=== PATIENT | male | born 1960 | race African-American/Black ===

== ENCOUNTER → 2016-08-29 | Outpatient (CLI) | payer MEDICAID ==
[~2016-08-29] MED LIST: AMOXICILLIN 50500 MG PO; ASPIRIN 81M81 MG/TA2 PO; CALCIUM 600-D 61 TAB PO; CASODEX 50MG TA50 MG PO; COREG 3.123.125 MG/T PO; FLEXERIL 1010 MG/TAB PO; FLOMAX 0.40.4 MG/CAP PO; LOPRESSOR 225 MG/TAB PO; LORTAB 5/500 501 TAB PO; MULTIPLE VITAMI1 CAP PO; NO HOME MEDICATIONS; NORCO 325 MG-51 TAB PO; OXYCODONE10 MG PO; OXYCONTIN40 MG PO; PERCOCET 325 MG1 TA2 PO; PERCOCET 325 MG1 TA3 PO; PERCOCET 325 MG1 TA5 PO; PERCOCET 325 MG1 TAB PO; PERCOCET 5/321 UDTAB PO; PERCOCET 650 MG1 TAB PO; PHENERGAN W/CO120 ML PO; PRINIVIL10 MG PO; PRINIVIL2.5 MG PO; PROTONIX 40MG T40 MG PO; ROXICODONE30 MG PO; SUDAFED 12HR120 MG PO; TEGRETOL 2200 MG/TAB PO; ULTRAM50 MG PO; XANAX XR2 MG PO; XANAX2 MG PO; ZOHYDRO ER20 MG PO
[2016-10-08 14:52] LABS: LF NECROINFLAMMAT ACT GRADE A3 (()); LF NECROINFLAMMAT ACT SCORE 0.78 (()); LF REFERENCE ID 1446060 (()); LIVER FIBROSIS ALPHA 2 MACRO 478 (()); LIVER FIBROSIS APOLIPOPROTEIN 184 (())
== END ==
LOC: COL.LAB 14:04
DX: B18.2 Chronic viral hepatitis C (principal)

== ENCOUNTER 2016-10-13 05:40 | Emergency (ER) | payer MEDICAID ==
[~2016-10-13] VITALS: Ht 185.4 cm; Wt 109.1 kg
[~2016-10-13 05:40] MED LIST changes: -PERCOCET 325 MG1 TA3 PO; -PROTONIX 40MG T40 MG PO
[2016-10-13 05:45] VITALS: TEMP 99.7
[2016-10-13 06:26] LABS: BASO # 0.1 (0.0-0.2); BASO % 0.6 % (0.0-2.0); EOS # 0.6 (0.0-0.7); EOS % 6.3 % (0-4.0); GRAN # 4.5 (1.4-6.5); GRAN % 45.8 % (42.2-75.2); HEMOGLOBIN 14.9 g/dl (13.5-18.0); LYMPH # 3.1 (1.2-3.4); LYMPH % 31.8 % (20.0-51.0); MEAN CELL VOLUME 88 fl (80.0-100.0); MEAN CORPUSCULAR HEMOGLOBIN 30 pg (27.0-31.0); MEAN CORPUSCULAR HGB CONC 34 g/dl (33.0-37.0); MEAN PLATELET VOLUME 11.7 fl (7.4-10.4); MONO # 1.5 (0.1-0.6); MONO % 15.3 % (1.7-9.3); PLATELET COUNT 271 K/mm3 (130-400); RED BLOOD COUNT 4.98 M/mm3 (4.20-5.60); REDCELL DISTRIBUTION WIDTH-CV 13.6 % (11.5-14.5); WHITE BLOOD COUNT 9.8 K/mm3 (4.8-10.8)
[2016-10-13 06:36] LABS: ADJUSTED CALCIUM 9.9 mg/dL (8.4-10.2); ALANINE AMINOTRANSFERASE 152 U/L (21-72); ALBUMIN 3.5 gm/dL (3.5-5.0); ALKALINE PHOSPHATASE 200 U/L (50-136); ANION GAP 10 mmol/L (7-16); BILIRUBIN,TOTAL 0.7 mg/dL (0.0-1.0); BLOOD UREA NITROGEN 12 mg/dL (9-20); CALCIUM 9.5 mg/dL (8.4-10.2); CARBON DIOXIDE 25 mmol/L (22-30); CHLORIDE 102 mmol/L (98-107); CREATININE, serum 0.72 mg/dL (0.66-1.25); GLUCOSE 124 mg/dL (74-106); LIPASE 63 U/L (23-300); POTASSIUM 4.1 mmol/L (3.4-5.0); SODIUM 136 mmol/L (137-145); TOTAL PROTEIN 7.6 gm/dL (6.4-8.2)
[2016-10-13 06:48] LABS: B-TYPE NATRIURETIC PEPTIDE 75 pg/mL (0-125)
[2016-10-13 06:55] LABS: TROPONIN-I < 0.012 ng/mL (0.000-0.034)
[2016-10-13] MEDS ORDERED: PROTONIX 40MG T40 MG PO (07:15)
[2016-10-13 07:28] VITALS: BP 136/70; PULSE 65
== END 2016-10-13 07:25 | disposition home or self-care (01) ==
LOC: COL.ER 05:40
PROVIDERS: Emergency Medicine
DX: R07.9 Chest pain, unspecified (principal); R10.13 Epigastric pain; I42.8 Other cardiomyopathies; Z95.810 Presence of automatic (implantable) cardiac defibrillator; Z90.49 Acquired absence of other specified parts of digestive tract

== ENCOUNTER 2016-11-08 13:39 | Emergency (ER) | payer MEDICAID ==
[~2016-11-08] VITALS: Ht 185.4 cm; Wt 113.6 kg
[~2016-11-08 13:39] MED LIST changes: +PROTONIX 40MG T40 MG PO
[2016-11-08 13:40] VITALS: BP 164/88; TEMP 97.4
[2016-11-08] MEDS ORDERED: PERCOCET 325 MG1 TA3 PO (15:20)
[2016-11-08 15:36] VITALS: PULSE 81
== END 2016-11-08 15:37 | disposition home or self-care (01) ==
LOC: COL.ER 13:39
DX: M54.89 Other dorsalgia (principal); M54.2 Cervicalgia; I10 Essential (primary) hypertension; K21.9 Gastro-esophageal reflux disease without esophagitis; I42.9 Cardiomyopathy, unspecified; C61 Malignant neoplasm of prostate; C79.51 Secondary malignant neoplasm of bone; Z79.899 Other long term (current) drug therapy; Z79.891 Long term (current) use of opiate analgesic
CPT/HCPCS: J2360

== ENCOUNTER 2018-02-10 12:25 | Emergency (ER) | payer MEDICAID ==
[~2018-02-10] VITALS: Ht 185.4 cm; Wt 104.5 kg
[~2018-02-10 12:25] MED LIST changes: +PERCOCET 325 MG1 TA3 PO
[2018-02-10 12:35] VITALS: TEMP 97.9
[2018-02-10] MEDS ORDERED: LASIX 20MG TABL20 MG PO (12:49)
[2018-02-10] MEDS ORDERED: XTANDI40 MG PO (12:50)
[2018-02-10 13:23] LABS: COLLECTION METHOD CLEAN CATCH
[2018-02-10 13:35] LABS: MUCOUS Present /lpf; PH 6 (5-8); SQUAMOUS EPITHELIAL 0-2 /hpf; URINE APPEARANCE Clear; URINE BACTERIA None Seen /hpf; URINE BILIRUBIN Negative (NEGATIVE); URINE BLOOD 1+ (NEGATIVE); URINE COLOR Yellow; URINE GLUCOSE Negative (NEGATIVE); URINE KETONE Negative (NEGATIVE); URINE LEUKOCYTE ESTERASE 2+ (NEGATIVE); URINE NITRATE Negative (NEGATIVE); URINE PROTEIN(semi-quant) Negative (NEGATIVE); URINE UROBILINOGEN Negative (NEGATIVE)
[2018-02-10 13:42] LABS: BASO % 0.6 % (0.0-2.0); EOS # 0.7 (0.0-0.7); EOS % 10.1 % (0-4.0); GRAN # 3.2 (1.4-6.5); GRAN % 45.5 % (42.2-75.2); HEMOGLOBIN 12.4 g/dl (13.5-18.0); LYMPH # 2.1 (1.2-3.4); LYMPH % 29.6 % (20.0-51.0); MEAN CELL VOLUME 87 fl (80.0-100.0); MEAN CORPUSCULAR HEMOGLOBIN 29 pg (27.0-31.0); MEAN CORPUSCULAR HGB CONC 34 g/dl (33.0-37.0); MEAN PLATELET VOLUME 11.6 fl (7.4-10.4); MONO % 13.9 % (1.7-9.3); PLATELET COUNT 316 K/mm3 (130-400); RED BLOOD COUNT 4.23 M/mm3 (4.20-5.60); REDCELL DISTRIBUTION WIDTH-CV 13.9 % (11.5-14.5)
[2018-02-10 13:43] LABS: HEMATOCRIT 36.6 % (42.0-52.0)
[2018-02-10 13:47] LABS: PROTHROMBIN TIME 11.2 SECONDS (9.7-12.8)
[2018-02-10 13:48] LABS: ALBUMIN 3.9 gm/dL (3.5-5.0); BILIRUBIN,TOTAL 0.6 mg/dL (0.0-1.0); CALCIUM 9.3 mg/dL (8.4-10.2); CREATININE, serum 0.88 mg/dL (0.66-1.25); POTASSIUM 4.3 mmol/L (3.4-5.0)
[2018-02-10] MEDS ORDERED: CEPHALEXIN500 M1 PO (14:52)
[2018-02-10 15:47] VITALS: BP 117/66; PULSE 70
== END 2018-02-10 15:49 | disposition home or self-care (01) ==
LOC: COL.ER 12:25
PROVIDERS: Nurse Practitioner
DX: N39.0 Urinary tract infection, site not specified (principal); I87.2 Venous insufficiency (chronic) (peripheral); G89.29 Other chronic pain; I25.2 Old myocardial infarction; F17.210 Nicotine dependence, cigarettes, uncomplicated; Z90.49 Acquired absence of other specified parts of digestive tract; Z95.0 Presence of cardiac pacemaker; Z98.890 Other specified postprocedural states; Z88.8 Allergy status to other drugs, medicaments and biological substances; Z85.46 Personal history of malignant neoplasm of prostate
CPT/HCPCS: J1170

== ENCOUNTER → 2018-03-06 | Outpatient (CLI) | payer MEDICAID ==
[~2018-03-06] MED LIST changes: +CEPHALEXIN500 M1 PO; +LASIX 20MG TABL20 MG PO; +XTANDI40 MG PO
== END ==
LOC: COL.RAD 10:16
DX: C79.51 Secondary malignant neoplasm of bone (principal); C61 Malignant neoplasm of prostate; R59.0 Localized enlarged lymph nodes; N32.89 Other specified disorders of bladder; N28.89 Other specified disorders of kidney and ureter
CPT/HCPCS: A9503; Q9967

== ENCOUNTER 2018-04-01 14:08 | Day surgery (SDC) | payer MEDICAID ==
[2018-04-01] VITALS (11 sets, daily range): BP systolic 118–144; BP diastolic 56–103; PULSE 62–98; TEMP 97.2–99.1
[~2018-04-01] VITALS: Ht 185.4 cm; Wt 93.2 kg
[2018-04-02 04:43] VITALS: BP 123/68; PULSE 73; TEMP 98.2
[2018-04-02 08:50] VITALS: BP 120/54; PULSE 73; TEMP 98
[2018-04-02 12:12] VITALS: BP 120/61; PULSE 73; TEMP 98.4
[2018-04-02 16:29] VITALS: BP 120/63; PULSE 76; TEMP 98.4
[2018-04-02 19:23] VITALS: BP 112/60; PULSE 71; TEMP 98.5
[2018-04-02 22:50] VITALS: BP 109/60; PULSE 76; TEMP 98.1
[2018-04-03 08:00] VITALS: BP 122/72; PULSE 76; TEMP 97.5
[2018-04-03 11:13] VITALS: BP 114/67; PULSE 79; TEMP 98.7
== END 2018-04-03 15:14 | disposition home or self-care (01) ==
LOC: SDCO 14:08 → SURG 18:00 → SDCO 04-03 15:14
DX: C67.1 Malignant neoplasm of dome of bladder (principal); C61 Malignant neoplasm of prostate; C79.51 Secondary malignant neoplasm of bone; F90.9 Attention-deficit hyperactivity disorder, unspecified type; Z86.19 Personal history of other infectious and parasitic diseases; Z79.82 Long term (current) use of aspirin; Z79.899 Other long term (current) drug therapy; F17.210 Nicotine dependence, cigarettes, uncomplicated; F10.10 Alcohol abuse, uncomplicated; Z83.3 Family history of diabetes mellitus; Z19.2 Hormone resistant malignancy status; Z95.810 Presence of automatic (implantable) cardiac defibrillator; G89.29 Other chronic pain; M54.9 Dorsalgia, unspecified; F41.9 Anxiety disorder, unspecified; I11.0 Hypertensive heart disease with heart failure; K21.9 Gastro-esophageal reflux disease without esophagitis; I50.9 Heart failure, unspecified; I34.0 Nonrheumatic mitral (valve) insufficiency
CPT/HCPCS: OP; J0690; J1100; J1885; J2270; J2405; J2704; J3010; J7030